=== PATIENT | female | born 1995 | race Caucasian/White ===

== ENCOUNTER 2020-05-17 05:25 | Inpatient (IN) | payer OTHER ==
[2020-05-17 06:04] VITALS: BMI 30.2
[2020-05-17] MEDS ORDERED: hydrALAZINE 20 MG/ML VIAL SLOW IVP PRN ×2 (06:19→17:18)
[2020-05-17] MEDS ORDERED: Promethazine HCl 25 MG/ML VIAL IM PRN ×3 (06:19→17:18)
[2020-05-17] MEDS ORDERED: HYDROcodone/Acetaminophen 5/325 mg Tablet PO PRN ×4 (06:19→17:18)
[2020-05-17] MEDS ORDERED: Ibuprofen 800 MG TAB PO PRN (06:19)
[2020-05-17] MEDS ORDERED: Lidocaine 1% (PF) 30 ML VIAL SC PRN (06:19)
[2020-05-17] MEDS ORDERED: Butorphanol Tartrate 1 MG/ML VIAL SLOW IVP PRN (06:19)
--- NOTE | 2020-05-17 06:19 | PDOC.BPN ---
- Brief Progress Note 40 weeks 1` day with CTX Cx 3cm Direct admission to [facility]. Courtesy orders placed.
[2020-05-17] MEDS: Lactated Ringer's 1,000 ML IV SCH ×3 (07:05→13:08)
[2020-05-17 07:29] LABS: Hemoglobin 11.9 g/dL (12.0-16.0); Mean Corpuscular HGB CONC 32.9 g/dL (32.0-36.0); Mean Corpuscular Hemoglobin 26.6 pg (27.0-31.0); Mean Corpuscular Volume 80.8 fL (78.0-98.0); Mean Platelet Volume 7.5 fL (7.4-10.4); Platelet Count 322 thou/uL (130-400); RBC Distribution Width 13.7 % (11.5-14.5); Red Blood Cell (RBC) Count 4.45 mill/uL (4.20-5.40); White Blood Cell (WBC) Count 10.4 thou/uL (4.8-10.8)
[2020-05-17 07:54] LABS: Syphilis Antibody Nonreactive (Nonreactive); Syphilis Antibody Index 0.15 S/CO (<1.00 Non-Reactive)
[2020-05-17 07:55] LABS: HBSAg Index 0.18 S/CO (0-0.99); HIV (1/2) Antibody/Antigen Non-Reactive (NonReactive); HIV 1/2 INDEX 0.15 S/CO (<1.00); Hep B Surf Ag Non-Reactive S/CO (NonReactive)
[2020-05-17] MEDS ORDERED: NS / Oxytocin 40 units/1000ml 1,000 ML ONE (08:08)
[2020-05-17] MEDS ORDERED: Bupivacaine 0.5% 20 ML, fentaNYL Citrate/PF 400 MCG in Sodium Chloride 0.9% 72 ML EPIDURAL SCH (08:45)
[2020-05-17] MEDS ORDERED: DISCONTINUE ALL PREVIOUS NARCOTICS FS SCH (08:45)
[2020-05-17] MEDS ORDERED: Bupivacaine 0.25% HCL 30 ML VIAL ONE (08:56)
[2020-05-17] MEDS ORDERED: ePHEDrine 50 MG/ML VIAL ONE (08:56)
[2020-05-17] MEDS: Ondansetron PF 4 MG/2 ML Vial IVP PRN ×2 (09:21→14:40)
[2020-05-17] MEDS ORDERED: Lactated Ringer's 500 ML IV PRN (09:55)
[2020-05-17] MEDS ORDERED: ePHEDrine 50 MG/ML VIAL SLOW IVP PRN (09:55)
[2020-05-17] MEDS ORDERED: diphenhydrAMINE 50 MG/ML VIAL IVP PRN (09:55)
[2020-05-17] MEDS ORDERED: Acetaminophen 325 MG TAB PO PRN (09:55)
[2020-05-17] MEDS ORDERED: Naloxone HCl 0.4 mg/ml Vial IVP PRN ×2 (09:55)
[2020-05-17] MEDS ORDERED: Ondansetron PF 4 MG/2 ML Vial IVP PRN ×2 (09:55→17:18)
[2020-05-17] MEDS ORDERED: Fentanyl 4 mcg/Bupivacaine 0.1% Cassette 100 ML EPIDURAL SCH (10:00)
[2020-05-17] MEDS ORDERED: Communication Order-Pharmacy FS SCH (10:00)
--- NOTE | 2020-05-17 12:32 | PDOC.LDHP ---
Labor and Delivery H&P Chief complaint: contractions HPI: 25yo at 40w1d by LMP here for painful ctx. Current gestational age (weeks): 40 Due date: 05/16/20 Dating criteria: last menstrual period Grav: 2 Para: 1 Current complications: none Abnormal US findings: No Past Medical History: denies Current medications: pre-cata vitamins Previous surgical history: none Allergies/Adverse Reactions: Allergies Allergy/AdvReac Type Severity Reaction Status Date / Time No Known Allergies Allergy Verified 05/17/20 05:57 Social history: none - Physical Exam Vital signs reviewed and normal: yes General: NAD Heart: RRR Lungs: CTAB Abdomen: gravid Extremeties: no edema FHT: category 1 [place] contractions every: 3min - Vaginal Exam cm dilated: 5 Effacement: 90% Station: 0 - OB Labs Blood type: A RH: positive Antibody Screen: negative HIV: negative RPR: negative HEPSAg: negative 1 hour GCT: positive 3 hour GTT: positive for GDM GBS: negative Urine drug screen: negative Rubella: immune - Assessment L&D Assessment: term patient in labor - Plan Plan: admit to L&D, labor augmentation if indicated, informed consent obtained, anesthesia consult for pain management
[2020-05-17] MEDS ORDERED: NS w/ Oxytocin 10 units 500 ML IV SCH (13:30)
[2020-05-17] MEDS: NS / Oxytocin 40 units/1000ml 1,000 ML IV PRN ×2 (15:12→16:30)
--- NOTE | 2020-05-17 15:50 | PDOC.OPDEL ---
OB Operative/Delivery Note Delivery Dr/Surgeon: Amy Assist: n/a Pre-Delivery Diagnosis: active labor Procedure/Post Delivery Dx: spontaneous vaginal delivery Weeks gestation: 40 Anesthesia: epidural - Findings A Sex: female - 1 min: 8 - 5 min: 9 - Additional Findings/Plan Placenta delivered: spontaneous Repaired Obstetrical Laceration: 1st degree Estimated blood loss: 50cc Post delivery plan: routine recovery
[2020-05-17] MEDS ORDERED: NS / Oxytocin 40 units/1000ml 1,000 ML IV SCH (17:18)
[2020-05-17] MEDS ORDERED: Lanolin Ointment 7 GM TUBE TOP PRN (17:18)
[2020-05-17] MEDS ORDERED: Benzocaine-Menthol 82.5 ML CAN TOP PRN (17:18)
[2020-05-17] MEDS ORDERED: Bisacodyl 10 MG SUPP PR PRN (17:18)
[2020-05-17] MEDS ORDERED: Milk Of Magnesia 30 ML UDCUP PO PRN (17:18)
[2020-05-17] MEDS ORDERED: diphenhydrAMINE 25 MG CAP PO PRN (17:18)
[2020-05-17] MEDS ORDERED: Preparation H Ointment 28 GM TUBE PR PRN (17:18)
[2020-05-17] MEDS ORDERED: Ferrous Sulfate 325 MG TAB PO SCH (17:30)
[2020-05-17] MEDS: Ibuprofen 800 MG TAB PO SCH (20:40)
[2020-05-17] MEDS: Docusate Calcium (SURFAK) 240 MG CAP PO SCH (20:40)
[2020-05-18] MEDS: Ibuprofen 800 MG TAB PO SCH ×2 (05:09→14:01)
[2020-05-18] MEDS ORDERED: Ferrous Sulfate 325 MG TAB PO SCH ×2 (08:00)
[2020-05-18] MEDS: Docusate Calcium (SURFAK) 240 MG CAP PO SCH (08:44)
[2020-05-18] MEDS ORDERED: Prenatal Vitamin 1 TAB PO SCH (09:00)
[2020-05-18] MEDS ORDERED: Adacel (T-DAP) 0.5 ML SYRINGE IM ONE (09:00)
[2020-05-18 12:08] VITALS: BP 109/73; TEMP 98.2
--- NOTE | 2020-05-18 12:58 | PDOC.PP ---
Post Progress Note Post Day #: 1 PO intake tolerated: yes Flatus: yes Ambulation: yes Vital Signs (12 hours) Temp Pulse Resp BP Pulse Ox 05/18/20 12:00 98.2 F 66 18 109/73 05/18/20 08:00 98.4 F 65 18 111/55 L 100 05/18/20 05:00 97.8 F 63 15 97/53 L Weight Weight 176 lb - Physical Examination General: NAD Respiratory: non-labored breathing Abdominal: no distention, appropriately TTP Neurological: no gross focal deficits Psychiatric: normal affect Result Diagrams: 05/17/20 07:00 Additional Labs: Post Labs Hep Bs Antigen Non-Reactive S/CO (NonReactive) 05/17/20 07:00 Blood Type A POSITIVE 05/17/20 07:43 - Assessment/Plan PPD1 s/p TSVD VSSAF Doing well, lochia < menses Rh pos RImm DC home FU 6w
== END 2020-05-18 17:40 | disposition home or self-care (01) | DRG 807 ==
LOC: L&D/OP 05:25 → L&D 06:44 → 3SW 17:54
PROVIDERS: ADMIT Student in an Organized Health Care Education/Training Program; ATTEND Student in an Organized Health Care Education/Training Program
PROC: 10E0XZZ Delivery of Products of Conception, External Approach (ICD-10-PCS; principal; 2020-05-17)
PROC: 0HQ9XZZ Repair Perineum Skin, External Approach (ICD-10-PCS; 2020-05-17)
DX: O24.429 Gestational diabetes mellitus in childbirth, unspecified control (principal); Z37.0 Single live birth; Z3A.40 40 weeks gestation of pregnancy; O70.0 First degree perineal laceration during delivery; Z20.828 Contact with and (suspected) exposure to other viral communicable diseases
CPT/HCPCS: 36415; 36416; 51702; 85027; 86780; 86850; 86900; 86901; 87340; 87389; 87635; 99285; J2405; J2590; J3010; J3490; S0020; U0003